=== PATIENT | male | born 1985 | race Caucasian/White ===

== ENCOUNTER 2017-02-13 06:52 | Emergency (ER) | payer OTHER ==
[~2017-02-13] VITALS: Ht 182.9 cm; Wt 123.9 kg
[~2017-02-13 06:52] MED LIST: ATEN25TA PO; MULT-506 PO
[2017-02-13 06:55] VITALS: TEMP 36.7; Ht 182.9 cm; Wt 123.9 kg
[2017-02-13] MEDS ORDERED: SUCRALFATE 1 GM TAB PO STA (07:11)
[2017-02-13] MEDS ORDERED: FAMOTIDINE 20 MG TAB PO STA (07:11)
[2017-02-13] MEDS ORDERED: GI COCKTAIL PO STA (07:11)
[2017-02-13] MEDS ORDERED: MELO15TA4 PO (07:14)
[2017-02-13] MEDS ORDERED: METO25TA3 PO (07:14)
[2017-02-13] MEDS ORDERED: ASPI81TA28 PO (07:15)
--- NOTE | 2017-02-13 07:16 | EMERGENCY ROOM VISIT NOTE ---
History Report prepared by Raghavendra: Telma Herbert Under the Supervision of: Dr. Patel Espinoza M.D. First contact with patient: 07:00 Chief Complaint: CARDIAC ASSESSMENT Stated Complaint: HIGH HEART RATE, NAUSEA, CHEST DISCOMPFORT Nursing Triage Summary: pt reports chest pain over left breast and n/v today. has felt like hr has been elevated for last couple days . has been placed on new med , metoprolol , had been on atenolol. at night tightness in shoulder blades and chest pain worsens History of Present Illness The patient is a 32 year old male who presents to the Emergency Room with complaints of constant tachycardia beginning several days ago. The patient reports that this morning he also had tachycardia, along with nausea. He states that he has also had pressure in his chest over the last week and that he still has the chest discomfort right now. He reports that he takes Metoprolol for hypertension. The patient states that he is not diabetic, but that diabetes runs in his family. Source of History: patient Onset: several days ago Position: other (global) Quality: other (tachycardia) Timing: constant Associated Symptoms: + chest pain (pressure in his chest ), + nausea Review of Systems See HPI for pertinent positives & negatives. A total of 10 systems reviewed and were otherwise negative. Past Medical & Surgical Medical Problems: (1) Degenerative disc disease, cervical (2) Degenerative disc disease, lumbar (3) Hypertension Family History Diabetes mellitus Hypertension Social History Smoking Status: Never Smoker Alcohol Use: occasionally Marital Status: Housing Status: lives with family Occupation Status: employed Current/Historical Medications Scheduled Famotidine (Pepcid), 40 MG PO HS Meloxicam (Meloxicam), 15 MG PO DAILY Metoprolol Succinate (Toprol Xl), 25 MG PO DAILY Miscellaneous Medications Aspirin (Aspirin Ec), 81 MG PO Allergies Coded Allergies: No Known Allergies (Unverified , 02/13/17) Physical Exam Vital Signs Date Time Temp Pulse Resp B/P (MAP) Pulse Ox O2 Delivery O2 Flow Rate FiO2 02/13/17 09:36 68 97 02/13/17 09:31 139/87 02/13/17 09:06 76 96 02/13/17 09:01 127/77 02/13/17 08:36 75 15 96 02/13/17 08:31 132/74 02/13/17 08:22 80 13 95 02/13/17 08:01 137/69 02/13/17 07:53 96 Room Air 02/13/17 07:52 82 21 92 02/13/17 07:31 133/76 02/13/17 07:22 96 Room Air 02/13/17 07:22 96 Room Air 02/13/17 07:22 81 17 96 02/13/17 07:06 86 02/13/17 07:04 147/101 02/13/17 06:55 36.7 88 18 157/95 96 Room Air Physical Exam GENERAL: Patient is a healthy-appearing well-nourished [] HEAD: Normocephalic atraumatic EYES: Ocular movements intact pupils equal and react to light OROPHARYNX mucous membranes are moist no exudates present no erythema or edema present NECK: Supple no nuchal rigidity CHEST: Good equal expansion LUNGS: Clear and equal to auscultation CARDIAC: Normal S1 and S2 ABDOMEN: Soft nontender no guarding BACK: No CVA tenderness EXTREMITIES: No pain upon palpation normal muscle strength in all groups no clubbing cyanosis or edema NEURO: Patient is following commands and answering questions appropriately. Alert and oriented x3 Cranial Nerves 2-12 grossly intact Medical Decision & Procedures ER Provider Diagnostic Interpretation: X-ray results as stated below per interpretation by me and the radiologist: CHEST ONE VIEW PORTABLE CLINICAL HISTORY: 32 years-old Male presenting with CHEST PAIN. TECHNIQUE: Portable upright AP view of the chest was obtained. COMPARISON: None. FINDINGS: Cardiomediastinal silhouette normal. Lungs and pleural spaces clear. Osseous structures normal. Upper abdomen normal. IMPRESSION: 1. No acute cardiopulmonary disease. Electronically signed by: Nakul Welch M.D. 02/13/2017 7:38 AM Dictated Date/Time: 02/13/2017 7:38 AM Laboratory Results 02/13/17 07:10 Red Blood Count 5.05, Mean Corpuscular Volume 88.9, Mean Corpuscular Hemoglobin 30.3, Mean Corpuscular Hemoglobin Concent 34.1, Mean Platelet Volume 11.6, Neutrophils (%) (Auto) 63.1, Lymphocytes (%) (Auto) 22.5, Monocytes (%) (Auto) 7.4, Eosinophils (%) (Auto) 6.2, Basophils (%) (Auto) 0.6, Neutrophils # (Auto) 4.21, Lymphocytes # (Auto) 1.50, Monocytes # (Auto) 0.49, Eosinophils # (Auto) 0.41, Basophils # (Auto) 0.04 02/13/17 07:10 Test 02/13/17 07:10 02/13/17 07:17 02/13/17 07:20 02/13/17 08:49 White Blood Count 6.66 K/uL (4.8-10.8) Red Blood Count 5.05 M/uL (4.7-6.1) Hemoglobin 15.3 g/dL (14.0-18.0) Hematocrit 44.9 % (42-52) Mean Corpuscular Volume 88.9 fL (80-100) Mean Corpuscular Hemoglobin 30.3 pg (25-34) Mean Corpuscular Hemoglobin Concent 34.1 g/dl (32-36) Platelet Count 175 K/uL (130-400) Mean Platelet Volume 11.6 fL (7.4-10.4) Neutrophils (%) (Auto) 63.1 % Lymphocytes (%) (Auto) 22.5 % Monocytes (%) (Auto) 7.4 % Eosinophils (%) (Auto) 6.2 % Basophils (%) (Auto) 0.6 % Neutrophils # (Auto) 4.21 K/uL (1.4-6.5) Lymphocytes # (Auto) 1.50 K/uL (1.2-3.4) Monocytes # (Auto) 0.49 K/uL (0.11-0.59) Eosinophils # (Auto) 0.41 K/uL (0-0.5) Basophils # (Auto) 0.04 K/uL (0-0.2) RDW Standard Deviation 39.0 fL (36.4-46.3) RDW Coefficient of Variation 12.2 % (11.5-14.5) Immature Granulocyte % (Auto) 0.2 % Immature Granulocyte # (Auto) 0.01 K/uL (0.00-0.02) Est Creatinine Clear Calc Drug Dose 121.3 ml/min Estimated GFR () 92.8 Estimated GFR (Non- 80.1 BUN/Creatinine Ratio 14.7 (10-20) Calcium Level 8.9 mg/dl (8.5-10.1) Total Bilirubin 0.3 mg/dl (0.2-1) Direct Bilirubin < 0.1 mg/dl (0-0.2) Aspartate Amino Transf (AST/SGOT) 20 U/L (15-37) Alanine Aminotransferase (ALT/SGPT) 34 U/L (12-78) Alkaline Phosphatase 57 U/L (45-117) Total Creatine Kinase 163 U/L (39-308) Creatine Kinase MB 1.0 ng/ml (0.5-3.6) Creatine Kinase MB Ratio 0.6 (0-3.0) Troponin I < 0.015 ng/ml (0-0.045) Total Protein 7.6 gm/dl (6.4-8.2) Albumin 3.9 gm/dl (3.4-5.0) Lipase 190 U/L (73-393) Bedside Hemoglobin 16.0 g/dl (14.0-18.0) Bedside Hematocrit 47 % (42-52) Bedside Sodium 140 mEq/L (135-144) Bedside Potassium 3.8 mEq/L (3.3-5.0) Bedside Chloride 105 mEq/L (101-112) Bedside Total CO2 22 mEq/l (24-31) Anion Gap 18.0 mmol/L (16-25) Bedside Blood Urea Nitrogen 18 mg/dl (7-18) Bedside Creatinine 1.1 mg/dl (0.6-1.3) Bedside Glucose (other) 144 mg/dl (70-99) Bedside Ionized Calcium (Robyn) 1.19 mmol/l (1.12-1.32) Bedside D-Dimer 101 ng/mlFEU (0-450) Bedside Troponin I < 0.030 ng/ml (0-0.045) Labs reviewed by ED physician. Medications Administered Medications (Trade) Dose Ordered Sig/Mary Kate Route Start Time Stop Time Status Last Admin Dose Admin Famotidine (Pepcid Tab) 20 mg NOW STAT PO 02/13/17 07:11 02/13/17 07:14 DC 02/13/17 07:33 20 MG Sucralfate (Carafate Tab) 1 gm NOW STAT PO 02/13/17 07:11 02/13/17 07:14 DC 02/13/17 07:33 1 GM Al Hydroxide/Mg Hydroxide (Maalox Susp) 30 ml STK-MED ONCE .ROUTE 02/13/17 07:31 02/13/17 07:32 DC 02/13/17 07:34 30 ML Lidocaine HCl (Viscous Lidocaine 2% Soln) 20 ml STK-MED ONCE .ROUTE 02/13/17 07:32 02/13/17 07:33 DC 02/13/17 07:34 20 ML ECG Indication: chest pain Rate (beats per minute): 88 Rhythm: normal sinus Findings: no acute ischemic change, no ectopy Change: REPEAT ECG: normal sinus rhythm, rate of 74, no ectopy, no acute ischemic changes ED Course 0702: Past medical records reviewed. The patient was evaluated in room B4B. A complete history and physical examination was performed. 0711: Ordered Sucralfate 1 gm PO, Famotidine 20 mg PO, Gi Cocktail 24 ml PO. 0731: Ordered Maalox Susp 30 ml. 0732: Ordered Lidocaine HCl 20 ml. 0930: Upon reexamination the patient is resting comfortably. I discussed results and treatment plan with the patient. He verbalizes agreement and understanding. The patient is ready for discharge. Medical Decision Differential diagnosis: Etiologies such as cardiac ischemia, aortic dissection, pulmonary embolism, pneumonia, pneumothorax, musculoskeletal, infections, pericarditis, myocarditis , esophageal rupture, gastrointestinal, as well as others were entertained. This is a 32-year-old male who presents emergency department complaining of palpitations along with chest discomfort. The patient has a normal EKG here as well as a normal CK-MB and troponin fraction. He had a repeat EKG as well as a repeat troponin which are both negative. In addition the patient had a negative d-dimer. He was given a GI cocktail along with Pepcid and Carafate. Repeat examination revealed improvement patient's symptoms. I do feel that the patient as well as to be discharged home for follow-up with cardiology. Patient and family were in agreement with the treatment plan. Medication Reconcilliation Current Medication List: was personally reviewed by me Blood Pressure Screening Patient's blood pressure: Elevated blood pressure Blood pressure disposition: Referred to PCP Impression Primary Impression: Palpitations Scribe Attestation The scribe's documentation has been prepared under my direction and personally reviewed by me in its entirety. I confirm that the note above accurately reflects all work, treatment, procedures, and medical decision making performed by me. Departure Information Dispostion Home / Self-Care Prescriptions Famotidine (Pepcid) 40 Mg Tab 40 MG PO HS for 10 Days, #10 TAB Prov: Patel Espinoza MD 02/13/17 Referrals Jennifer. Cuevas E. PA-C (PCP) Michael Curtis MD Forms IMPORTANT VISIT INFORMATION, School Instructions, Work Instructions Patient Instructions ED Palpitations, [facility] Additional Instructions Follow up with DR Curtis's office this week No strenuous activity until follow up Try taking 5 ml Maalox before every meal and at bedtime You were found to have an elevated blood pressure today (>120 sytolic or >90 diastolic). Per medicare guidelines, you need to follow up with this blood pressure screening with your Primary Care Physician (PCP). For a new PCP call [phone]. You have been examined and treated today on an emergency basis only. This is not a substitute for, or an effort to provide, complete comprehensive medical care. It is impossible to recognize and treat all injuries or illnesses in a single emergency department visit. It is therefore important that you follow up closely with DR Cuevas. Call as soon as possible for an appointment. Thank you for your time and consideration. I look forward to speaking with you again soon. Please don't hesitate to call us if you have any questions.
[2017-02-13 07:22] VITALS: O2SAT 96
[2017-02-13 07:31] LABS: ISTAT CREATININE 1.1 mg/dl (0.6-1.3); ISTAT IONIZED CALCIUM 1.19 mmol/l (1.12-1.32)
[2017-02-13] MEDS ORDERED: ALUMINUM/MAGNESIUM SUSP 30 ML UDC ONE (07:31)
[2017-02-13] MEDS ORDERED: LIDOCAINE HCL 2% VISC SOLN 20 ML UDC ONE (07:32)
[2017-02-13 07:36] LABS: BASO % 0.6 %; BASO ABS # 0.04 K/uL (0-0.2); COMPLETE YES; EOS % 6.2 %; HEMATOCRIT 44.9 % (42-52); IG% 0.2 %; LYMPH % 22.5 %; MEAN CELL VOLUME 88.9 fL (80-100); MEAN CORPUSCULAR HEMOGLOBIN 30.3 pg (25-34); MEAN CORPUSCULAR HGB CONC 34.1 g/dl (32-36); MEAN PLATELET VOLUME 11.6 fL (7.4-10.4); MONO % 7.4 %; NEUT % 63.1 %; PLATELET COUNT 175 K/uL (130-400); RED BLOOD COUNT 5.05 M/uL (4.7-6.1); WHITE BLOOD COUNT 6.66 K/uL (4.8-10.8)
--- NOTE | 2017-02-13 07:40 | DIAGNOSTIC IMAGING REPORT ---
CHEST ONE VIEW PORTABLE CLINICAL HISTORY: 32 years-old Male presenting with CHEST PAIN. TECHNIQUE: Portable upright AP view of the chest was obtained. COMPARISON: None. FINDINGS: Cardiomediastinal silhouette normal. Lungs and pleural spaces clear. Osseous structures normal. Upper abdomen normal. IMPRESSION: 1. No acute cardiopulmonary disease. Electronically signed by: Nakul Welch M.D. 02/13/2017 7:38 AM Dictated Date/Time: 02/13/2017 7:38 AM
[2017-02-13 07:47] LABS: ALT/SGPT 34 U/L (12-78); BLOOD UREA NITROGEN 18 mg/dl (7-18); BUN/CREATININE RATIO 14.7 (10-20); CALCIUM 8.9 mg/dl (8.5-10.1); CARBON DIOXIDE 24 mmol/L (21-32); CHLORIDE 108 mmol/L (98-107); GLUCOSE 143 mg/dl (70-99); POTASSIUM 3.8 mmol/L (3.5-5.1); SODIUM 140 mmol/L (136-145)
[2017-02-13 07:52] LABS: ALKALINE PHOSPHATASE 57 U/L (45-117); AST/SGOT 20 U/L (15-37); CKMB/CK RATIO 0.6 (0-3.0)
[2017-02-13 09:31] VITALS: BP 139/87
[2017-02-13 09:36] VITALS: PULSE 68; O2SAT 97
[2017-02-13] MEDS ORDERED: FAMO40TA6 PO (09:42)
== END 2017-02-13 09:49 | disposition home or self-care (01) ==
LOC: C.EDB 06:53
DX: R00.2 Palpitations (principal); M51.36 Other intervertebral disc degeneration, lumbar region; M50.90 Cervical disc disorder, unspecified, unspecified cervical region; I10 Essential (primary) hypertension; Z83.3 Family history of diabetes mellitus; Z82.49 Family history of ischemic heart disease and other diseases of the circulatory system; Z79.899 Other long term (current) drug therapy

== ENCOUNTER → 2017-06-07 | Day surgery (SDC) | payer OTHER ==
[2017-05-14 08:19] VITALS: Ht 182.9 cm; Wt 122.7 kg
[~2017-06-07] VITALS: Ht 182.9 cm; Wt 122.7 kg
[~2017-06-07] MED LIST changes: -ATEN25TA PO; +ATENOLOL PO; +GABA1CAP5 PO; +IOPAMIDOL INJ 61% 15 ML VIAL ONE; +LIDOCAINE HCL 1% MPF 5 ML VIAL ONE; +MENT4GEL TOP; -MULT-506 PO; +SODIUM CHLORIDE 0.9% INJ 10 ML VIAL ONE
[2017-06-07 12:49] VITALS: TEMP 36.9
--- NOTE | 2017-06-07 13:28 | History & Physical Bridge - [place] ---
H&P Re-Evaluation Bridge Note: I have examined the patient, reviewed the History & Physical and in the interval since the performance of the History & Physical I have noted the following changes of clinical significance: No changes noted
[2017-06-07 14:00] VITALS: BP 151/73; PULSE 81; O2SAT 92
--- NOTE | 2017-06-07 14:04 | Discharge Instructions ---
Discharge Instructions Date of Service Jun 07, 2017. Visit Reason for Visit: Lumbar Disc Displacement Discharge Discharge Diagnosis / Problem: left leg pain Discharge Goals Goal(s): Decrease discomfort, Improve function Activity Recommendations Activity Limitations: resume your previous activity Anesthesia . Post Anesthesia Instructions: If you have had General Anesthesia or IV Sedation: * Do not drive today. * Resume driving when surgeon permits. * Do not make important decisions or sign legal documents today. * Call surgeon for: 1. Temperature elevations greater than 101 degrees F. 2. Uncontrollable pain. 3. Excessive bleeding. 4. Persistent nausea and vomiting. 5. Medication intolerance (nausea, vomiting or rash). * For nausea and vomiting use only clear liquids such as: tea, soda, bouillon until nausea subsides, then gradually increase diet as tolerated. * If you have any concerns or questions, call your surgeon's office. If physician is unavailable and it is an emergency, call 911 or go to the nearest emergency room. . Diet Recommendations Recommended Home Diet: resume previous diet Procedures Procedures Performed: LUMBAR EPIDURAL STEROID INJECTION Pending Studies Studies pending at discharge: no Medical Emergencies . Who to Call and When: Medical Emergencies: If at any time you feel your situation is an emergency, please call 911 immediately. . Non-Emergent Contact Non-Emergency issues call your: Specialist . . "Provider Documentation" section prepared by Panchito Almendarez. .
--- NOTE | 2017-06-07 15:36 | OPERATIVE REPORT ---
DATE OF OPERATION: 06/07/2017 PREOPERATIVE DIAGNOSIS: Left L5 radiculopathy, history of lumbar disc herniation. POSTOPERATIVE DIAGNOSIS: Same. PROCEDURE: Left paramedian L5-S1 intralaminar epidural steroid injection under fluoroscopic guidance. SURGEON: Dr. Panchito Almendarez. INDICATIONS: The patient is a 32-year-old white male who has a known history of a lumbar disc herniation with radicular pain that responded to conservative treatment in the past; however, the pain has been returning and is problematic for him. He presents today for an epidural injection as gabapentin, prednisone taper and physical therapy has alleviated his pain some but not eliminated it significantly. PHYSICAL EXAMINATION: GENERAL: Pleasant male seated comfortably. MUSCULOSKELETAL: Lumbar paraspinal muscles were palpated, nontender. He had some limitations with forward flexion. Positive straight leg raises of his left lower extremity. No focal motor or sensory deficits. CONSENT: Verbal and written consent was obtained from the patient. Risks and benefits were reviewed. Risks include but are not limited to epidural abscess, epidural hematoma, allergic reaction, dural puncture. The patient wishes to proceed. PROCEDURE: The patient was taken back to the special procedures room of the [facility] where he was maintained in a prone position. Backside was cleansed with Betadine x3 and a dry sterile dressing was applied. Fluoroscope was used to identify the L5-S1 intralaminar space and overlying skin on the left side was anesthetized with 4 mL of lidocaine 1% with a 25 gauge 1.5-inch needle. A 22-gauge 3-1/2 inch Tuohy needle was then directed down towards the intralaminar space. Loss of resistance was noted at a depth of about 7.5 cm. Isovue-300 contrast 1 mL was injected in which demonstrated epidural uptake pattern. He then underwent injection after negative aspiration of 40 mg of Depo-Medrol and 4 mL of preservative free sodium chloride. Injection reproduced a familiar transient radicular sensation down the left leg. DISPOSITION: 1. The patient is taken out into the discharge recovery area where he will be discharged home once discharge criteria have been met. 2. Follow up in the [facility] office in 4 weeks. I attest to the content of the Intraoperative Record and any orders documented therein. Any exception s are noted below.
== END | disposition home or self-care (01) ==
LOC: X.SURG 12:41
PROVIDERS: ATTEND Physical Medicine & Rehabilitation
DX: M54.16 Radiculopathy, lumbar region (principal); Z79.899 Other long term (current) drug therapy